=== PATIENT | male | born 1950 | race Hispanic/Latino ===

== ENCOUNTER 2018-08-07 20:25 | Emergency (ER) | payer MEDICARE ==
[2018-08-07] MEDS ORDERED: ACETAMINOPHEN EXTRA STRENGTH 500 MG TABLET ONE (21:46)
[2018-08-07 21:51] LABS: CREATININE 0.8 mg/dL (0.5-1.5); POTASSIUM 3.6 mmol/L (3.5-5.1)
[2018-08-07 21:55] LABS: ALBUMIN 2.9 g/dL (3.5-5.0); BILIRUBIN,DIRECT 0.5 mg/dL (0.0-0.3); TOTAL PROTEIN, SERUM 6.6 g/dL (6.0-8.3)
[2018-08-07 21:59] LABS: BASOPHILS % (AUTO) 0.3 % (0.0-5.0); EOSINOPHILS % (AUTO) 2.6 % (0.0-8.0); HEMATOCRIT 39.1 % (42-54); LYMPHOCYTES % (AUTO) 8.1 % (21.0-51.0); MEAN CORPUSCULAR HEMOGLOBIN 32.9 pg (27.0-33.0); MEAN CORPUSCULAR HGB CONC 34.2 g/dL (32.0-36.0); MEAN CORPUSCULAR VOLUME 96.1 fL (79-99); MONOCYTES % (AUTO) 12.4 % (3.0-13.0); NEUTROPHILS % (AUTO) 76.6 % (40.0-77.0); PLATELET COUNT (AUTO) 118 K/uL (130-400); RED BLOOD CELL COUNT(AUTO) 4.07 MIL/uL (4.50-6.20); RED CELL DISTRIBUTION WIDTH 13.6 % (11.0-15.5)
[2018-08-07 22:04] LABS: APPEARANCE,URINE Clear (CLEAR); BILIRUBIN,URINE Small (NEGATIVE); COLOR,URINE Dark Yellow (YELLOW); GLUCOSE, URINE (UA) Negative (NEGATIVE); KETONES,URINE Trace mg/dL (NEGATIVE); LEUKOCYTE ESTERASE ,URINE Negative (NEGATIVE); NITRATE,URINE Negative (NEGATIVE); OCCULT BLOOD,URINE Negative (NEGATIVE); PROTEIN,URINE Trace (NEGATIVE)
[2018-08-07 22:45] LABS: BACTERIA,URINE Rare /HPF (None Seen); MUCUS,URINE Few LPF (None Seen); RBC,URINE 0-1 /HPF (0-1); SQUAMOUS EPITHELIAL CELL,UR 0-2 /HPF (0-2); WBC,URINE 0-1 /HPF (0-1)
== END 2018-08-07 23:32 | disposition home or self-care (01) ==
LOC: EDH 20:25
DX: A75.9 Typhus fever, unspecified (principal); E86.0 Dehydration
CPT/HCPCS: 36415; 71046; 80048; 80076; 81001; 83605; 84484; 85025; 87040; 87804; 93005; 96361; 96374

== ENCOUNTER 2020-03-31 11:49 | Emergency (ER) | payer MEDICARE ==
[2020-03-31 12:54] LABS: BASOPHILS % (AUTO) 0.6 % (0.0-5.0); EOSINOPHILS % (AUTO) 3.9 % (0.0-8.0); HEMATOCRIT 42.9 % (42-54); LYMPHOCYTES % (AUTO) 21.6 % (21.0-51.0); MEAN CORPUSCULAR HEMOGLOBIN 33.1 pg (27.0-33.0); MEAN CORPUSCULAR VOLUME 94.7 fL (79-99); MONOCYTES % (AUTO) 9.9 % (3.0-13.0); NEUTROPHILS % (AUTO) 63.9 % (40.0-77.0); PLATELET COUNT (AUTO) 130 K/uL (130-400); RED BLOOD CELL COUNT(AUTO) 4.53 MIL/uL (4.50-6.20); RED CELL DISTRIBUTION WIDTH 12.8 % (11.0-15.5)
[2020-03-31 13:10] LABS: RAPID GROUP A STREP NEGATIVE (NEGATIVE)
[2020-03-31 13:24] LABS: CREATININE 0.7 mg/dL (0.5-1.5); POTASSIUM 4.1 mmol/L (3.5-5.1)
[2020-03-31 13:28] LABS: ALBUMIN 3.3 g/dL (3.5-5.0); TOTAL PROTEIN, SERUM 6.7 g/dL (6.0-8.3)
== END 2020-03-31 13:56 | disposition home or self-care (01) ==
LOC: EDH 11:49
DX: I48.92 Unspecified atrial flutter (principal); R06.02 Shortness of breath; Z68.31 Body mass index [BMI] 31.0-31.9, adult; R94.5 Abnormal results of liver function studies; E66.9 Obesity, unspecified; Z87.891 Personal history of nicotine dependence
CPT/HCPCS: 36415; 71045; 80053; 82550; 83880; 84484; 85025; 87804; 87880; 93005

== ENCOUNTER 2020-12-15 10:13 | Emergency (ER) | payer MEDICARE ==
[~2020-12-15] VITALS: Ht 152.4 cm; Wt 93.4 kg
[~2020-12-15 10:13] MED LIST: APIX5TAB PO; CARV12.511 PO; CEFD300C3 PO; PRED20TA3 PO; UMEC1DIS IH
[2020-12-15 11:16] LABS: BASOPHILS % (AUTO) 1.1 % (0.0-5.0); EOSINOPHILS % (AUTO) 10.7 % (0.0-8.0); HEMATOCRIT 38.2 % (42-54); LYMPHOCYTES % (AUTO) 29.5 % (21.0-51.0); MEAN CORPUSCULAR HEMOGLOBIN 32.8 pg (27.0-33.0); MEAN CORPUSCULAR HGB CONC 33.8 g/dL (32.0-36.0); MEAN CORPUSCULAR VOLUME 97.2 fL (79-99); MONOCYTES % (AUTO) 9.4 % (3.0-13.0); NEUTROPHILS % (AUTO) 49.1 % (40.0-77.0); PLATELET COUNT (AUTO) 132 K/uL (130-400); RED BLOOD CELL COUNT(AUTO) 3.93 MIL/uL (4.50-6.20); RED CELL DISTRIBUTION WIDTH 12.8 % (11.0-15.5); WHITE BLOOD COUNT (AUTO) 4.7 K/uL (4.8-10.8)
[2020-12-15] MEDS ORDERED: SOLU-MEDROL 125MG VIAL IVP SCH (11:30)
[2020-12-15] MEDS ORDERED: CEFTRIAXONE 1G VIAL IVP SCH (11:30)
[2020-12-15] MEDS ORDERED: ALBUTEROL 0.083% 2.5 MG/3 ML INH IH SCH (11:30)
[2020-12-15] MEDS ORDERED: 0.9%NACL 100ML 100 ML ONE (11:35)
[2020-12-15 11:38] LABS: ALBUMIN 3.1 g/dL (3.5-5.0); BILIRUBIN,TOTAL 0.7 mg/dL (0.2-1.0); CREATININE 0.7 mg/dL (0.5-1.5); TOTAL PROTEIN, SERUM 5.8 g/dL (6.0-8.3)
[2020-12-15 11:47] VITALS: BP 103/58
[2020-12-15] MEDS ORDERED: METH4TAB3 PO (13:18)
[2020-12-15] MEDS ORDERED: AZIT500T PO (13:18)
[2020-12-15 14:33] VITALS: BP 124/67
== END 2020-12-15 14:39 | disposition home or self-care (01) ==
LOC: EDH 10:13
DX: J44.1 Chronic obstructive pulmonary disease with (acute) exacerbation (principal); I48.91 Unspecified atrial fibrillation; D69.6 Thrombocytopenia, unspecified; E66.9 Obesity, unspecified; F17.200 Nicotine dependence, unspecified, uncomplicated; Z79.01 Long term (current) use of anticoagulants; Z79.899 Other long term (current) drug therapy; Z79.52 Long term (current) use of systemic steroids
CPT/HCPCS: 36415; 71045; 80053; 85025; 93005; 94640; 96374; 96375; 99285; J0696; J2930

== ENCOUNTER 2020-12-30 09:18 | Emergency (ER) | payer MEDICARE ==
[~2020-12-30 09:18] MED LIST changes: +AZIT500T PO; +METH4TAB3 PO
== END 2020-12-30 10:26 | disposition left against medical advice (07) ==
LOC: EDH 09:18
DX: R06.02 Shortness of breath (principal); Z53.21 Procedure and treatment not carried out due to patient leaving prior to being seen by health care provider

== ENCOUNTER 2021-01-10 04:50 | Emergency (ER) | payer MEDICARE ==
[~2021-01-10] VITALS: Ht 160 cm; Wt 93.4 kg
[2021-01-10] MEDS ORDERED: CEFTRIAXONE 1G VIAL IVP ONE (05:30)
[2021-01-10] MEDS ORDERED: ALBUTEROL 0.083% 2.5 MG/3 ML INH IH ONE (05:30)
[2021-01-10] MEDS ORDERED: SOLU-MEDROL 125MG VIAL IVP ONE (05:30)
[2021-01-10 05:45] VITALS: BP 128/74
[2021-01-10 06:02] LABS: BASOPHILS % (AUTO) 0.4 % (0.0-5.0); EOSINOPHILS % (AUTO) 10.5 % (0.0-8.0); HEMATOCRIT 39.2 % (42-54); LYMPHOCYTES % (AUTO) 28.6 % (21.0-51.0); MEAN CORPUSCULAR HGB CONC 33.4 g/dL (32.0-36.0); MEAN CORPUSCULAR VOLUME 98.7 fL (79-99); MONOCYTES % (AUTO) 9.9 % (3.0-13.0); NEUTROPHILS % (AUTO) 50.2 % (40.0-77.0); PLATELET COUNT (AUTO) 103 K/uL (130-400); RED BLOOD CELL COUNT(AUTO) 3.97 MIL/uL (4.50-6.20); RED CELL DISTRIBUTION WIDTH 13.3 % (11.0-15.5)
[2021-01-10 06:09] LABS: CREATININE 0.6 mg/dL (0.5-1.5); POTASSIUM 4.6 mmol/L (3.5-5.1)
[2021-01-10 06:18] LABS: ALBUMIN 2.8 g/dL (3.5-5.0); BILIRUBIN,TOTAL 1.1 mg/dL (0.2-1.0); TOTAL PROTEIN, SERUM 5.7 g/dL (6.0-8.3)
[2021-01-10 06:22] LABS: B-TYPE NATRIURETIC PEPTIDE 182 pg/mL (0-100)
[2021-01-10 06:30] VITALS: BP 117/57
[2021-01-10] MEDS ORDERED: METH4TAB3 PO (07:19)
[2021-01-10] MEDS ORDERED: AZIT500T PO (07:19)
[2021-01-10 08:10] LABS: APPEARANCE,URINE Clear (CLEAR); BILIRUBIN,URINE Negative (NEGATIVE); COLOR,URINE Yellow (YELLOW); GLUCOSE, URINE (UA) Negative (NEGATIVE); KETONES,URINE Negative (NEGATIVE); LEUKOCYTE ESTERASE ,URINE Negative (NEGATIVE); NITRATE,URINE Negative (NEGATIVE); OCCULT BLOOD,URINE Trace (NEGATIVE); PROTEIN,URINE Negative (NEGATIVE)
[2021-01-10 08:17] VITALS: BP 103/46
[2021-01-10 08:31] LABS: BACTERIA,URINE Rare /HPF (None Seen); RBC,URINE 0-1 /HPF (0-1); SQUAMOUS EPITHELIAL CELL,UR Rare /HPF (0-2); WBC,URINE 0-1 /HPF (0-1)
== END 2021-01-10 08:19 | disposition home or self-care (01) ==
LOC: EDH 04:50
DX: J44.1 Chronic obstructive pulmonary disease with (acute) exacerbation (principal); E66.9 Obesity, unspecified; I48.91 Unspecified atrial fibrillation; Z79.899 Other long term (current) drug therapy; Z79.01 Long term (current) use of anticoagulants; Z20.822 Contact with and (suspected) exposure to COVID-19
CPT/HCPCS: 36415; 71045; 80053; 81001; 83880; 84484; 85025; 87426; 93005; 94640; 96374; 96375; 99285; J0696; J2930

== ENCOUNTER 2021-02-07 05:37 | Emergency (ER) | payer MEDICARE ==
[~2021-02-07] VITALS: Ht 160 cm; Wt 97.1 kg
[2021-02-07 06:06] VITALS: BP 94/44
[2021-02-07] MEDS ORDERED: SOLU-MEDROL 125MG VIAL IVP SCH (06:30)
[2021-02-07] MEDS ORDERED: CYCLOBENZAPRINE HCL 10 MG TABLET PO SCH (06:30)
[2021-02-07] MEDS ORDERED: HYDROCODONE/ACETAMINOPHEN 10/325 MG TAB PO SCH (06:30)
[2021-02-07] MEDS ORDERED: CYCLOBENZAPRINE HCL 10 MG TABLET ONE (06:32)
[2021-02-07] MEDS ORDERED: HYDROCODONE/ACETAMINOPHEN 10/325 MG TAB ONE (06:32)
[2021-02-07] MEDS ORDERED: METH4TAB3 PO (06:46)
[2021-02-07] MEDS ORDERED: CYCL5TAB PO (06:46)
== END 2021-02-07 06:59 | disposition home or self-care (01) ==
LOC: EDH 05:37
DX: S39.012A Strain of muscle, fascia and tendon of lower back, initial encounter (principal); I48.91 Unspecified atrial fibrillation; J44.9 Chronic obstructive pulmonary disease, unspecified; K21.9 Gastro-esophageal reflux disease without esophagitis; F17.200 Nicotine dependence, unspecified, uncomplicated; Z79.52 Long term (current) use of systemic steroids; Z79.899 Other long term (current) drug therapy; Z79.01 Long term (current) use of anticoagulants; X58.XXXA Exposure to other specified factors, initial encounter; Y93.89 Activity, other specified; Y92.89 Other specified places as the place of occurrence of the external cause; Y99.8 Other external cause status

== ENCOUNTER 2021-04-13 15:02 | Emergency (ER) | payer MEDICARE ==
[~2021-04-13] VITALS: Ht 160 cm; Wt 98.0 kg
[~2021-04-13 15:02] MED LIST changes: +CYCL5TAB PO
[2021-04-13] MEDS ORDERED: TAMSULOSIN HCL 0.4 MG CAP.ER.24H ONE (15:14)
[2021-04-13 15:22] LABS: APPEARANCE,URINE Clear (CLEAR); BILIRUBIN,URINE Negative (NEGATIVE); COLOR,URINE Yellow (YELLOW); GLUCOSE, URINE (UA) Negative (NEGATIVE); KETONES,URINE Negative (NEGATIVE); LEUKOCYTE ESTERASE ,URINE Trace (NEGATIVE); NITRATE,URINE Negative (NEGATIVE); OCCULT BLOOD,URINE Negative (NEGATIVE); PH,URINE 6.5 (5.0-8.0); PROTEIN,URINE Negative (NEGATIVE)
[2021-04-13 15:30] LABS: BACTERIA,URINE None Seen /HPF (None Seen); RBC,URINE 0-1 /HPF (0-1)
[2021-04-13] MEDS ORDERED: TAMSULOSIN HCL 0.4 MG CAP.ER.24H PO SCH (15:30)
[2021-04-13] MEDS ORDERED: CEFTRIAXONE 1G VIAL IM ONE (15:30)
[2021-04-13 15:31] LABS: MUCUS,URINE Few LPF (None Seen); SQUAMOUS EPITHELIAL CELL,UR Rare /HPF (0-2)
[2021-04-13] MEDS ORDERED: LIDOCAINE HCL-MPF 1% 2ML VIAL ONE (15:34)
[2021-04-13] MEDS ORDERED: CEPH500B PO (15:42)
[2021-04-13] MEDS ORDERED: TAMS-1 PO (15:42)
[2021-04-13 15:56] VITALS: BP 124/71
== END 2021-04-13 16:00 | disposition home or self-care (01) ==
LOC: EDH 15:02
DX: N39.0 Urinary tract infection, site not specified (principal); N40.1 Benign prostatic hyperplasia with lower urinary tract symptoms; R33.8 Other retention of urine; J44.9 Chronic obstructive pulmonary disease, unspecified; I50.9 Heart failure, unspecified; F17.200 Nicotine dependence, unspecified, uncomplicated; Z79.01 Long term (current) use of anticoagulants; Z79.52 Long term (current) use of systemic steroids; Z79.899 Other long term (current) drug therapy
CPT/HCPCS: 81001; 96372; 99283; J0696; J3490

== ENCOUNTER 2021-07-24 13:35 | Emergency (ER) | payer MEDICARE ==
[~2021-07-24] VITALS: Ht 160 cm; Wt 117.9 kg
[~2021-07-24 13:35] MED LIST changes: +CEPH500B PO; +TAMS-1 PO
[2021-07-24 14:59] VITALS: BP 118/58
== END 2021-07-24 15:01 | disposition home or self-care (01) ==
LOC: EDH 13:41
DX: S01.511A Laceration without foreign body of lip, initial encounter (principal); S00.12XA Contusion of left eyelid and periocular area, initial encounter; S40.211A Abrasion of right shoulder, initial encounter; J44.9 Chronic obstructive pulmonary disease, unspecified; F17.210 Nicotine dependence, cigarettes, uncomplicated; Z79.52 Long term (current) use of systemic steroids; Z79.01 Long term (current) use of anticoagulants; Y08.89XA Assault by other specified means, initial encounter; Y93.89 Activity, other specified; Y92.89 Other specified places as the place of occurrence of the external cause; Y99.8 Other external cause status
CPT/HCPCS: 12011; 70450; 70486; 72125

== ENCOUNTER 2021-09-07 16:31 | Emergency (ER) | payer MEDICARE ==
[~2021-09-07] VITALS: Ht 162.6 cm; Wt 117.9 kg
[2021-09-07 16:58] LABS: BASOPHILS % (AUTO) 0.5 % (0.0-5.0); EOSINOPHILS % (AUTO) 3.1 % (0.0-8.0); HEMATOCRIT 40.3 % (42-54); LYMPHOCYTES % (AUTO) 23.3 % (21.0-51.0); MEAN CORPUSCULAR HEMOGLOBIN 32.3 pg (27.0-33.0); MEAN CORPUSCULAR HGB CONC 34.5 g/dL (32.0-36.0); MEAN CORPUSCULAR VOLUME 93.5 fL (79-99); MONOCYTES % (AUTO) 10.9 % (3.0-13.0); PLATELET COUNT (AUTO) 132 K/uL (130-400); RED BLOOD CELL COUNT(AUTO) 4.31 MIL/uL (4.50-6.20); RED CELL DISTRIBUTION WIDTH 13.3 % (11.0-15.5); WHITE BLOOD COUNT (AUTO) 6.5 K/uL (4.8-10.8)
[2021-09-07] MEDS ORDERED: 0.9%NACL 1000ML 1,000 ML IV ONE (17:00)
[2021-09-07] MEDS ORDERED: FLUT1DIS4 IH (17:01)
[2021-09-07] MEDS ORDERED: UMEC62.5 IH (17:01)
[2021-09-07 17:06] LABS: CREATININE 0.7 mg/dL (0.5-1.5); POTASSIUM 3.9 mmol/L (3.5-5.1)
[2021-09-07 17:29] LABS: ALBUMIN 3.2 g/dL (3.5-5.0); BILIRUBIN,TOTAL 2.7 mg/dL (0.2-1.0); TOTAL PROTEIN, SERUM 6.1 g/dL (6.0-8.3)
[2021-09-07 17:53] LABS: INR 1.17 (0.85-1.15); PROTHROMBIN TIME 12.6 SEC (9.6-11.6)
[2021-09-07 17:55] LABS: PARTIAL THROMBOPLASTIN TIME 28.8 SEC (26.3-35.5)
[2021-09-07 18:13] LABS: APPEARANCE,URINE Clear (CLEAR); BILIRUBIN,URINE Negative (NEGATIVE); COLOR,URINE Dark Yellow (YELLOW); GLUCOSE, URINE (UA) Negative (NEGATIVE); KETONES,URINE Negative (NEGATIVE); LEUKOCYTE ESTERASE ,URINE Trace (NEGATIVE); NITRATE,URINE Negative (NEGATIVE); OCCULT BLOOD,URINE Negative (NEGATIVE); PROTEIN,URINE Negative (NEGATIVE)
[2021-09-07 18:30] LABS: BACTERIA,URINE Rare /HPF (None Seen); RBC,URINE 0-1 /HPF (0-1); SQUAMOUS EPITHELIAL CELL,UR Rare /HPF (0-2); WBC,URINE 0-1 /HPF (0-1)
[2021-09-07 18:31] LABS: MUCUS,URINE Few LPF (None Seen)
[2021-09-07] MEDS ORDERED: HUMAN PROTHROMBIN COMPLX(PCC) 500 UNIT KIT IV SCH (19:40)
[2021-09-07 19:49] VITALS: BP 125/98
== END 2021-09-07 20:06 | disposition short-term general hospital (02) ==
LOC: EDH 16:31
DX: S06.5X0A Traumatic subdural hemorrhage without loss of consciousness, initial encounter (principal); S30.0XXA Contusion of lower back and pelvis, initial encounter; R41.82 Altered mental status, unspecified; G81.91 Hemiplegia, unspecified affecting right dominant side; M62.82 Rhabdomyolysis; Z20.822 Contact with and (suspected) exposure to COVID-19; I48.91 Unspecified atrial fibrillation; J44.9 Chronic obstructive pulmonary disease, unspecified; F17.200 Nicotine dependence, unspecified, uncomplicated; Z79.899 Other long term (current) drug therapy; Z79.01 Long term (current) use of anticoagulants; Z60.2 Problems related to living alone; X58.XXXA Exposure to other specified factors, initial encounter; Y93.89 Activity, other specified; Y92.89 Other specified places as the place of occurrence of the external cause; Y99.8 Other external cause status
CPT/HCPCS: 36415; 70450; 80053; 81001; 82550; 84484; 85025; 85610; 85730; 87635; 93005; 96361; 96374; 99291; C9132; C9803; J7030; 96365

== ENCOUNTER 2022-01-13 03:47 | Emergency (ER) | payer MEDICARE ==
[~2022-01-13] VITALS: Ht 160 cm; Wt 92.5 kg
[~2022-01-13 03:47] MED LIST changes: -AZIT500T PO; -CEFD300C3 PO; -CEPH500B PO; -CYCL5TAB PO; +FLUT1DIS4 IH; -METH4TAB3 PO; -PRED20TA3 PO; -UMEC1DIS IH; +UMEC62.5 IH
[2022-01-13] MEDS ORDERED: DEXAMETHASONE SOD PHOSPHATE 4 MG/ML 1ML VIAL IM ONE (04:30)
[2022-01-13] MEDS ORDERED: LORATADINE 10 MG TABLET PO SCH (04:30)
[2022-01-13] MEDS ORDERED: METH4TAB3 PO (04:35)
[2022-01-13 04:41] VITALS: BP 133/79
== END 2022-01-13 04:44 | disposition home or self-care (01) ==
LOC: EDH 03:47
DX: J30.9 Allergic rhinitis, unspecified (principal); Z20.822 Contact with and (suspected) exposure to COVID-19; I10 Essential (primary) hypertension; I48.91 Unspecified atrial fibrillation; J44.9 Chronic obstructive pulmonary disease, unspecified; F17.200 Nicotine dependence, unspecified, uncomplicated; Z79.01 Long term (current) use of anticoagulants; Z79.51 Long term (current) use of inhaled steroids; Z79.52 Long term (current) use of systemic steroids
CPT/HCPCS: 99283; 87635; 87804 ×2; 96372; J1100; C9803

== ENCOUNTER 2023-03-21 01:59 | Emergency (ER) | payer MEDICARE ==
[~2023-03-21] VITALS: Ht 160 cm; Wt 94.8 kg
[~2023-03-21 01:59] MED LIST changes: +METH4TAB3 PO
[2023-03-21] MEDS ORDERED: CARV3.12 PO (02:27)
[2023-03-21] MEDS ORDERED: TAMS-1 PO (02:27)
[2023-03-21 02:28] LABS: ADD UA MICROSCOPIC YES; APPEARANCE,URINE CLEAR (CLEAR); BASOPHILS # (AUTO) 0.02 K/uL (0.00-0.20); BASOPHILS % (AUTO) 0.5 % (0.0-5.0); BILIRUBIN,URINE NEGATIVE (NEGATIVE); COLOR,URINE LIGHT-YELLOW (YELLOW); EOSINOPHILS # (AUTO) 0.18 K/uL (0.00-0.70); EOSINOPHILS % (AUTO) 4.8 % (0.0-8.0); GLUCOSE, URINE (UA) NEGATIVE (NEGATIVE); HEMATOCRIT 40.3 % (42-54); IMMATURE GRANULOCYTE ABSOLUTE 0.01 K/uL (0-1); KETONES,URINE NEGATIVE (NEGATIVE); LEUKOCYTE ESTERASE ,URINE NEGATIVE Leu/uL (NEGATIVE); LYMPHOCYTES # (AUTO) 0.6 K/uL (1.0-4.8); LYMPHOCYTES % (AUTO) 16.9 % (21.0-51.0); MEAN CORPUSCULAR HEMOGLOBIN 33.7 pg (27.0-33.0); MONOCYTES # (AUTO) 0.3 K/uL (0.1-1.0); MONOCYTES % (AUTO) 8.5 % (3.0-13.0); NEUTROPHILS # (AUTO) 2.6 K/uL (1.8-7.7); NITRATE,URINE NEGATIVE (NEGATIVE); OCCULT BLOOD,URINE SMALL (NEGATIVE); PH,URINE 6.5 (5.0-8.0); PLATELET COUNT (AUTO) 97 K/uL (130-400); PROTEIN,URINE NEGATIVE (NEGATIVE); RED BLOOD CELL COUNT(AUTO) 4.07 MIL/uL (4.50-6.20); RED CELL DISTRIBUTION WIDTH 12.8 % (11.0-15.5); UROBILINOGEN,URINE 3 mg/dL (0.2-1.0); WHITE BLOOD COUNT (AUTO) 3.8 K/uL (4.8-10.8)
[2023-03-21] MEDS ORDERED: ATOR40TA71 PO (02:28)
[2023-03-21 02:29] LABS: MUCUS,URINE RARE LPF (None Seen); RBC,URINE 26-50 /HPF (0-1); SQUAMOUS EPITHELIAL CELL,UR RARE /HPF (0-2); WBC,URINE 0-1 /HPF (0-1)
[2023-03-21] MEDS ORDERED: CEPH500C2 PO (02:29)
[2023-03-21] MEDS ORDERED: BUDE10.2 IH (02:30)
[2023-03-21] MEDS ORDERED: FLUT10.67 IH (02:30)
[2023-03-21] MEDS ORDERED: ASPIRIN 81MG CHEW TAB PO ONE (02:30)
[2023-03-21 02:35] LABS: CREATININE 0.6 mg/dL (0.5-1.5); POTASSIUM 3.7 mmol/L (3.5-5.1)
[2023-03-21 02:45] LABS: ALBUMIN 3.3 g/dL (3.5-5.0); BILIRUBIN,TOTAL 1.7 mg/dL (0.2-1.0); MAGNESIUM 1.7 mg/dL (1.80-2.40); TOTAL PROTEIN, SERUM 6.3 g/dL (6.0-8.3)
[2023-03-21] MEDS ORDERED: SOLU-MEDROL 125MG VIAL IVP ONE ×2 (03:00)
[2023-03-21] MEDS ORDERED: FUROSEMIDE 40MG VIAL IV ONE (03:00)
[2023-03-21] MEDS ORDERED: IPRATROPIUM/ALBUTEROL SULFATE 3 ML SOLUTION IH ONE ×3 (03:00)
[2023-03-21 03:08] VITALS: PULSE 61; RESP 19
[2023-03-21 03:13] VITALS: PULSE 61; RESP 19
[2023-03-21 03:18] VITALS: PULSE 65; RESP 19
[2023-03-21 03:20] VITALS: PULSE 66; RESP 20
[2023-03-21 03:48] VITALS: BP 154/60; PULSE 78; RESP 18; O2SAT 98
[2023-03-21] MEDS ORDERED: ALBU90AE2 IH (03:49)
[2023-03-21] MEDS ORDERED: DOXY100T21 PO (03:49)
[2023-03-21] MEDS ORDERED: PRED20TA3 PO (03:49)
== END 2023-03-21 04:32 | disposition home or self-care (01) ==
LOC: EDH 01:59
DX: J44.1 Chronic obstructive pulmonary disease with (acute) exacerbation (principal); J44.9 Chronic obstructive pulmonary disease, unspecified; R60.0 Localized edema; I10 Essential (primary) hypertension; I48.91 Unspecified atrial fibrillation; F17.200 Nicotine dependence, unspecified, uncomplicated; Z79.899 Other long term (current) drug therapy; Z98.890 Other specified postprocedural states
CPT/HCPCS: 99285; 96374; 71045; 96375; 82550; 83735; 83874; 84484 ×2; 80053; 83880; 85025; 81001; 36415; 93005; 94640 ×4; J2930; J1940

== ENCOUNTER 2023-03-21 09:19 | Emergency (ER) | payer MEDICARE ==
[~2023-03-21] VITALS: Ht 160 cm; Wt 94.8 kg
[~2023-03-21 09:19] MED LIST changes: +ALBU90AE2 IH; +ATOR40TA71 PO; +BUDE10.2 IH; +CARV3.12 PO; +CEPH500C2 PO; +DOXY100T21 PO; +FLUT10.67 IH; +PRED20TA3 PO
[2023-03-21 11:11] LABS: APPEARANCE,URINE CLEAR (CLEAR); BILIRUBIN,URINE NEGATIVE (NEGATIVE); COLOR,URINE LIGHT-YELLOW (YELLOW); GLUCOSE, URINE (UA) NEGATIVE (NEGATIVE); KETONES,URINE NEGATIVE (NEGATIVE); LEUKOCYTE ESTERASE ,URINE NEGATIVE Leu/uL (NEGATIVE); NITRATE,URINE NEGATIVE (NEGATIVE); OCCULT BLOOD,URINE LARGE (NEGATIVE); PROTEIN,URINE NEGATIVE (NEGATIVE); UROBILINOGEN,URINE 0.2 mg/dL (0.2-1.0)
[2023-03-21 11:13] LABS: ADD UA MICROSCOPIC YES
[2023-03-21 11:58] LABS: MUCUS,URINE RARE LPF (None Seen); RBC,URINE 51-100 /HPF (0-1); SQUAMOUS EPITHELIAL CELL,UR RARE /HPF (0-2)
[2023-03-21 12:24] VITALS: PULSE 77; RESP 18
[2023-03-21] MEDS ORDERED: IPRATROPIUM/ALBUTEROL SULFATE 3 ML SOLUTION IH ONE (12:30)
[2023-03-21 14:37] VITALS: BP 124/65; PULSE 79; RESP 16; O2SAT 98
[2023-03-21 14:41] LABS: EOSINOPHILS # (AUTO) 0.01 K/uL (0.00-0.70); EOSINOPHILS % (AUTO) 0.2 % (0.0-8.0); HEMATOCRIT 39.7 % (42-54); IMMATURE GRANULOCYTE ABSOLUTE 0.03 K/uL (0-1); LYMPHOCYTES # (AUTO) 0.5 K/uL (1.0-4.8); MEAN CORPUSCULAR HEMOGLOBIN 33.7 pg (27.0-33.0); MEAN CORPUSCULAR VOLUME 96.4 fL (79-99); MONOCYTES # (AUTO) 0.2 K/uL (0.1-1.0); MONOCYTES % (AUTO) 3.9 % (3.0-13.0); NEUTROPHILS # (AUTO) 3.9 K/uL (1.8-7.7); NEUTROPHILS % (AUTO) 85.2 % (40.0-77.0); PLATELET COUNT (AUTO) 103 K/uL (130-400); RED BLOOD CELL COUNT(AUTO) 4.12 MIL/uL (4.50-6.20); RED CELL DISTRIBUTION WIDTH 12.5 % (11.0-15.5); WHITE BLOOD COUNT (AUTO) 4.6 K/uL (4.8-10.8)
[2023-03-21 14:49] LABS: CREATININE 0.9 mg/dL (0.5-1.5); POTASSIUM 3.5 mmol/L (3.5-5.1)
[2023-03-21 14:51] LABS: INR 1.11 (0.85-1.15); PROTHROMBIN TIME 12.8 SEC (9.6-11.6)
[2023-03-21 14:52] LABS: PARTIAL THROMBOPLASTIN TIME 30.6 SEC (26.3-35.5)
[2023-03-21 14:54] LABS: ALBUMIN 3.2 g/dL (3.5-5.0); BILIRUBIN,TOTAL 2.1 mg/dL (0.2-1.0); TOTAL PROTEIN, SERUM 6.3 g/dL (6.0-8.3)
== END 2023-03-21 15:52 | disposition left against medical advice (07) ==
LOC: EDH 09:19
DX: R33.9 Retention of urine, unspecified (principal); I10 Essential (primary) hypertension; J44.9 Chronic obstructive pulmonary disease, unspecified; I48.91 Unspecified atrial fibrillation; Z79.899 Other long term (current) drug therapy; Z60.2 Problems related to living alone
CPT/HCPCS: 36415; 51702; 80053; 81001; 85025; 85610; 85730; 87088; 94640

== ENCOUNTER 2023-03-25 16:06 | Emergency (ER) | payer MEDICARE ==
[~2023-03-25] VITALS: Ht 160 cm; Wt 98.0 kg
[~2023-03-25 16:06] MED LIST changes: -METH4TAB3 PO
[2023-03-25 16:37] VITALS: BP 128/74; PULSE 65; RESP 16; O2SAT 98
[2023-03-25] MEDS ORDERED: MACR100 PO (17:56)
[2023-03-25] MEDS ORDERED: NITROFURANTOIN MONOHYD/M-CRYST 100 MG CAPSULE PO ONE (18:00)
[2023-03-26] MEDS ORDERED: CEPH500B PO (17:02)
[2023-03-26] MEDS ORDERED: PHEN-847 PO (17:02)
== END 2023-03-25 18:06 | disposition home or self-care (01) ==
LOC: EDH 16:06
DX: T83.091A Other mechanical complication of indwelling urethral catheter, initial encounter (principal); I10 Essential (primary) hypertension; I48.91 Unspecified atrial fibrillation; J44.9 Chronic obstructive pulmonary disease, unspecified; F17.200 Nicotine dependence, unspecified, uncomplicated; Z79.01 Long term (current) use of anticoagulants; Z79.51 Long term (current) use of inhaled steroids; Z86.73 Personal history of transient ischemic attack (TIA), and cerebral infarction without residual deficits; Y82.9 Unspecified medical devices associated with adverse incidents; Y92.89 Other specified places as the place of occurrence of the external cause
CPT/HCPCS: 51702

== ENCOUNTER 2023-03-25 23:27 | Emergency (ER) | payer MEDICARE ==
[~2023-03-25] VITALS: Ht 160 cm; Wt 95.7 kg
[~2023-03-25 23:27] MED LIST changes: +MACR100 PO
[2023-03-26 01:32] LABS: BASOPHILS # (AUTO) 0.02 K/uL (0.00-0.20); BASOPHILS % (AUTO) 0.3 % (0.0-5.0); EOSINOPHILS # (AUTO) 0.12 K/uL (0.00-0.70); IMMATURE GRANULOCYTE ABSOLUTE 0.03 K/uL (0-1); LYMPHOCYTES # (AUTO) 1.9 K/uL (1.0-4.8); LYMPHOCYTES % (AUTO) 31.6 % (21.0-51.0); MEAN CORPUSCULAR HGB CONC 34.9 g/dL (32.0-36.0); MEAN CORPUSCULAR VOLUME 97.6 fL (79-99); MONOCYTES # (AUTO) 0.7 K/uL (0.1-1.0); MONOCYTES % (AUTO) 11.9 % (3.0-13.0); NEUTROPHILS # (AUTO) 3.2 K/uL (1.8-7.7); NEUTROPHILS % (AUTO) 53.7 % (40.0-77.0); PLATELET COUNT (AUTO) 100 K/uL (130-400); RED BLOOD CELL COUNT(AUTO) 3.79 MIL/uL (4.50-6.20)
[2023-03-26 01:40] LABS: CREATININE 0.6 mg/dL (0.5-1.5); POTASSIUM 3.4 mmol/L (3.5-5.1)
[2023-03-26 01:47] LABS: ALBUMIN 2.7 g/dL (3.5-5.0); TOTAL PROTEIN, SERUM 5.5 g/dL (6.0-8.3)
[2023-03-26 01:57] LABS: APPEARANCE,URINE CLOUDY (CLEAR); BILIRUBIN,URINE NEGATIVE (NEGATIVE); COLOR,URINE YELLOW (YELLOW); GLUCOSE, URINE (UA) NEGATIVE (NEGATIVE); KETONES,URINE NEGATIVE (NEGATIVE); LEUKOCYTE ESTERASE ,URINE 75 Leu/uL (NEGATIVE); NITRATE,URINE NEGATIVE (NEGATIVE); OCCULT BLOOD,URINE LARGE (NEGATIVE); PROTEIN,URINE 30 mg/dL (NEGATIVE); UROBILINOGEN,URINE 3 mg/dL (0.2-1.0)
[2023-03-26 02:07] LABS: RBC,URINE TNTC /HPF (0-1); YEAST,URINE BUDDING RARE /HPF (None Seen)
[2023-03-26 04:33] VITALS: BP 134/69; PULSE 73; RESP 18; O2SAT 98
[2023-03-26] MEDS ORDERED: CEPH500B PO (17:02)
[2023-03-26] MEDS ORDERED: PHEN-847 PO (17:02)
== END 2023-03-26 04:41 | disposition home or self-care (01) ==
LOC: EDH 23:27
DX: R31.9 Hematuria, unspecified (principal); F17.200 Nicotine dependence, unspecified, uncomplicated; Z79.899 Other long term (current) drug therapy; Z98.890 Other specified postprocedural states
CPT/HCPCS: 36415; 51702; 80053; 81001; 84153; 85025; 87077; 87088; 87186

== ENCOUNTER 2023-03-26 12:26 | Emergency (ER) | payer MEDICARE ==
[~2023-03-26] VITALS: Ht 160 cm; Wt 98.0 kg
[2023-03-26 15:57] LABS: ADD UA MICROSCOPIC YES; APPEARANCE,URINE CLOUDY (CLEAR); BILIRUBIN,URINE NEGATIVE (NEGATIVE); COLOR,URINE LIGHT-ORANGE (YELLOW); GLUCOSE, URINE (UA) 30 mg/dL (NEGATIVE); KETONES,URINE NEGATIVE (NEGATIVE); LEUKOCYTE ESTERASE ,URINE 500 Leu/uL (NEGATIVE); NITRATE,URINE NEGATIVE (NEGATIVE); OCCULT BLOOD,URINE LARGE (NEGATIVE); PROTEIN,URINE 20 mg/dL (NEGATIVE); UROBILINOGEN,URINE 0.2 mg/dL (0.2-1.0)
[2023-03-26 16:00] LABS: BACTERIA,URINE RARE /HPF (None Seen); MUCUS,URINE RARE LPF (None Seen); RBC,URINE >100 /HPF (0-1); UNCLASSIFIED CRYSTAL 7 /HPF (None Seen)
[2023-03-26] MEDS ORDERED: CEFTRIAXONE 2GM VIAL IVPB ONE (17:00)
[2023-03-26] MEDS ORDERED: PHENAZOPYRIDINE HCL 200 MG TABLET PO ONE (17:00)
[2023-03-26] MEDS ORDERED: CEPH500B PO (17:02)
[2023-03-26] MEDS ORDERED: PHEN-847 PO (17:02)
[2023-03-26 17:07] VITALS: BP 124/67; PULSE 78; RESP 16; O2SAT 98
[2023-03-26] MEDS ORDERED: CEPHALEXIN 500 MG CAPSULE PO ONE (17:30)
== END 2023-03-26 17:18 | disposition home or self-care (01) ==
LOC: EDH 12:26
DX: N39.0 Urinary tract infection, site not specified (principal); F17.200 Nicotine dependence, unspecified, uncomplicated; Z79.01 Long term (current) use of anticoagulants; Z79.51 Long term (current) use of inhaled steroids; Z86.73 Personal history of transient ischemic attack (TIA), and cerebral infarction without residual deficits
CPT/HCPCS: 81001

== ENCOUNTER 2023-05-18 15:28 | Emergency (ER) | payer MEDICARE ==
[~2023-05-18] VITALS: Ht 160 cm; Wt 95.7 kg
[~2023-05-18 15:28] MED LIST changes: +CEPH500B PO; +PHEN-847 PO
[2023-05-18 15:42] VITALS: BP 132/75; PULSE 67; RESP 16
== END 2023-05-18 16:10 | disposition home or self-care (01) ==
LOC: EDH 15:28
DX: R20.8 Other disturbances of skin sensation (principal); I10 Essential (primary) hypertension; J44.9 Chronic obstructive pulmonary disease, unspecified; F17.200 Nicotine dependence, unspecified, uncomplicated; Z79.899 Other long term (current) drug therapy; Z98.890 Other specified postprocedural states
CPT/HCPCS: 99281

== ENCOUNTER 2023-11-17 16:53 | Emergency (ER) | payer MEDICARE ==
[~2023-11-17] VITALS: Ht 160 cm; Wt 81.6 kg
[~2023-11-17 16:53] MED LIST changes: -ALBU90AE2 IH; +ALBU90AE3 IH
[2023-11-17 17:17] LABS: BASOPHILS # (AUTO) 0.03 K/uL (0.00-0.20); BASOPHILS % (AUTO) 0.5 % (0.0-5.0); EOSINOPHILS # (AUTO) 0.27 K/uL (0.00-0.70); EOSINOPHILS % (AUTO) 4.3 % (0.0-8.0); HEMATOCRIT 42.6 % (42-54); IMMATURE GRANULOCYTE ABSOLUTE 0.03 K/uL (0-1); LYMPHOCYTES # (AUTO) 1.4 K/uL (1.0-4.8); LYMPHOCYTES % (AUTO) 22.8 % (21.0-51.0); MEAN CORPUSCULAR HGB CONC 35.4 g/dL (32.0-36.0); MONOCYTES # (AUTO) 0.5 K/uL (0.1-1.0); MONOCYTES % (AUTO) 7.2 % (3.0-13.0); NEUTROPHILS % (AUTO) 64.7 % (40.0-77.0); PLATELET COUNT (AUTO) 123 K/uL (130-400); RED BLOOD CELL COUNT(AUTO) 4.58 MIL/uL (4.50-6.20); RED CELL DISTRIBUTION WIDTH 12.5 % (11.0-15.5); WHITE BLOOD COUNT (AUTO) 6.2 K/uL (4.8-10.8)
[2023-11-17 17:23] LABS: CREATININE 0.6 mg/dL (0.5-1.3); POTASSIUM 3.5 mmol/L (3.5-5.1)
[2023-11-17 18:39] LABS: APPEARANCE,URINE CLEAR (CLEAR); BILIRUBIN,URINE NEGATIVE (NEGATIVE); COLOR,URINE LIGHT-YELLOW (YELLOW); GLUCOSE, URINE (UA) NEGATIVE (NEGATIVE); KETONES,URINE NEGATIVE (NEGATIVE); LEUKOCYTE ESTERASE ,URINE NEGATIVE Leu/uL (NEGATIVE); NITRATE,URINE NEGATIVE (NEGATIVE); PROTEIN,URINE NEGATIVE (NEGATIVE); UROBILINOGEN,URINE 0.2 mg/dL (0.2-1.0)
[2023-11-17 18:40] LABS: ADD UA MICROSCOPIC YES; MUCUS,URINE RARE LPF (None Seen); RBC,URINE 0-1 /HPF (0-1); WBC,URINE 0-1 /HPF (0-1)
[2023-11-17 19:00] VITALS: BP 149/83; PULSE 80; RESP 22; O2SAT 98
[2023-11-17] MEDS: ONDANSETRON 4MG INJ IVP ONE (19:34)
[2023-11-17] MEDS: FAMOTIDINE 20MG VIAL IV ONE (19:34)
[2023-11-17] MEDS: KETOROLAC 15MG/ML VIAL (15MG/ML) IV ONE (19:35)
== END 2023-11-17 19:49 | disposition home or self-care (01) ==
LOC: EDH 16:53
DX: N40.0 Benign prostatic hyperplasia without lower urinary tract symptoms (principal); R33.9 Retention of urine, unspecified; I48.91 Unspecified atrial fibrillation; E11.9 Type 2 diabetes mellitus without complications; J44.9 Chronic obstructive pulmonary disease, unspecified; Z79.899 Other long term (current) drug therapy; Z98.890 Other specified postprocedural states
CPT/HCPCS: 99285; 96374; 96375; 71045; 84484; 80048; 85025; 81001; 36415; 93005; J3490; J2405; J1885

== ENCOUNTER 2023-11-20 03:02 | Emergency (ER) | payer MEDICARE ==
[~2023-11-20] VITALS: Ht 160 cm; Wt 94.8 kg
[2023-11-20 03:32] VITALS: BP 132/68; PULSE 96; RESP 16; O2SAT 98
[2023-11-20] MEDS: OXYBUTYNIN 5 MG TAB.SR.24H PO SCH (04:23)
[2023-11-20 04:53] LABS: APPEARANCE,URINE CLEAR (CLEAR); BILIRUBIN,URINE NEGATIVE (NEGATIVE); COLOR,URINE YELLOW (YELLOW); GLUCOSE, URINE (UA) NEGATIVE (NEGATIVE); KETONES,URINE NEGATIVE (NEGATIVE); LEUKOCYTE ESTERASE ,URINE 75 Leu/uL (NEGATIVE); NITRATE,URINE NEGATIVE (NEGATIVE); OCCULT BLOOD,URINE LARGE (NEGATIVE); PH,URINE 5.5 (5.0-8.0); PROTEIN,URINE 20 mg/dL (NEGATIVE)
[2023-11-20 04:59] LABS: ADD UA MICROSCOPIC YES
[2023-11-20 05:08] LABS: BACTERIA,URINE RARE /HPF (None Seen); MUCUS,URINE RARE LPF (None Seen); RBC,URINE TNTC /HPF (0-1)
[2023-11-23] MEDS ORDERED: OXYB-61 PO (03:52)
== END 2023-11-20 05:37 | disposition home or self-care (01) ==
LOC: EDH 03:02
DX: N32.89 Other specified disorders of bladder (principal); E11.9 Type 2 diabetes mellitus without complications; F17.200 Nicotine dependence, unspecified, uncomplicated; I48.91 Unspecified atrial fibrillation; J44.9 Chronic obstructive pulmonary disease, unspecified; Z79.899 Other long term (current) drug therapy; Z98.890 Other specified postprocedural states
CPT/HCPCS: 81001; 87086; 93976

== ENCOUNTER 2023-11-20 06:13 | Emergency (ER) | payer MEDICARE ==
[~2023-11-20] VITALS: Ht 160 cm; Wt 94.8 kg
[2023-11-20 09:11] VITALS: BP 154/88; PULSE 62; RESP 18; O2SAT 98
[2023-11-20] MEDS: BACITRACIN 1 EACH PACKET TP ONE (09:12)
[2023-11-23] MEDS ORDERED: OXYB-61 PO (03:52)
== END 2023-11-20 09:13 | disposition home or self-care (01) ==
LOC: EDH 06:13
DX: R33.9 Retention of urine, unspecified (principal); E11.9 Type 2 diabetes mellitus without complications; F17.200 Nicotine dependence, unspecified, uncomplicated; I48.91 Unspecified atrial fibrillation; J44.9 Chronic obstructive pulmonary disease, unspecified; Z86.73 Personal history of transient ischemic attack (TIA), and cerebral infarction without residual deficits; Z79.899 Other long term (current) drug therapy; Z98.890 Other specified postprocedural states
CPT/HCPCS: 99282

== ENCOUNTER → 2023-11-21 | Emergency (ER) | payer MEDICARE ==
[~2023-11-21] VITALS: Ht 160 cm; Wt 94.8 kg
[~2023-11-21] MED LIST changes: +OXYB-61 PO
[2023-11-21 19:35] VITALS: BP 142/85; PULSE 56; RESP 20; O2SAT 98
== END ==
LOC: EDH 19:13
DX: Z46.82 Encounter for fitting and adjustment of non-vascular catheter (principal); E11.9 Type 2 diabetes mellitus without complications; J44.9 Chronic obstructive pulmonary disease, unspecified; I48.91 Unspecified atrial fibrillation; F17.200 Nicotine dependence, unspecified, uncomplicated; Z79.899 Other long term (current) drug therapy; Z98.890 Other specified postprocedural states
CPT/HCPCS: 99281

== ENCOUNTER 2023-11-29 00:43 | Emergency (ER) | payer MEDICARE ==
[~2023-11-29] VITALS: Ht 160 cm; Wt 94.8 kg
[2023-11-29 01:05] LABS: BASOPHILS # (AUTO) 0.04 K/uL (0.00-0.20); BASOPHILS % (AUTO) 0.8 % (0.0-5.0); EOSINOPHILS # (AUTO) 0.28 K/uL (0.00-0.70); EOSINOPHILS % (AUTO) 5.4 % (0.0-8.0); HEMATOCRIT 37.6 % (42-54); IMMATURE GRANULOCYTE ABSOLUTE 0.02 K/uL (0-1); LYMPHOCYTES # (AUTO) 1.2 K/uL (1.0-4.8); LYMPHOCYTES % (AUTO) 22.8 % (21.0-51.0); MEAN CORPUSCULAR HEMOGLOBIN 33.2 pg (27.0-33.0); MEAN CORPUSCULAR HGB CONC 34.3 g/dL (32.0-36.0); MEAN CORPUSCULAR VOLUME 96.9 fL (79-99); MONOCYTES # (AUTO) 0.5 K/uL (0.1-1.0); MONOCYTES % (AUTO) 10.3 % (3.0-13.0); NEUTROPHILS # (AUTO) 3.1 K/uL (1.8-7.7); NEUTROPHILS % (AUTO) 60.3 % (40.0-77.0); PLATELET COUNT (AUTO) 134 K/uL (130-400); RED BLOOD CELL COUNT(AUTO) 3.88 MIL/uL (4.50-6.20); RED CELL DISTRIBUTION WIDTH 12.5 % (11.0-15.5); WHITE BLOOD COUNT (AUTO) 5.2 K/uL (4.8-10.8)
[2023-11-29 01:18] LABS: CREATININE 0.7 mg/dL (0.5-1.3); POTASSIUM 4.1 mmol/L (3.5-5.1)
[2023-11-29 01:20] LABS: B-TYPE NATRIURETIC PEPTIDE 67 pg/mL (0-100)
[2023-11-29] MEDS: MORPHINE 2 MG SYG IVP ONE (02:25)
[2023-11-29] MEDS: ONDANSETRON 4MG INJ IVP ONE (02:25)
[2023-11-29] MEDS: FAMOTIDINE 20MG VIAL IV ONE (02:25)
[2023-11-29 02:26] VITALS: BP 136/64; PULSE 68; RESP 18; O2SAT 96
[2023-11-29] MEDS: MAG/ALUM/SIMETH 30 ML UDCUP PO ONE (02:26)
[2023-11-29 02:32] LABS: APPEARANCE,URINE CLEAR (CLEAR); BILIRUBIN,URINE NEGATIVE (NEGATIVE); COLOR,URINE COLORLESS (YELLOW); GLUCOSE, URINE (UA) NEGATIVE (NEGATIVE); KETONES,URINE NEGATIVE (NEGATIVE); LEUKOCYTE ESTERASE ,URINE 250 Leu/uL (NEGATIVE); NITRATE,URINE NEGATIVE (NEGATIVE); OCCULT BLOOD,URINE MODERATE (NEGATIVE); PH,URINE 6.5 (5.0-8.0); PROTEIN,URINE NEGATIVE (NEGATIVE); UROBILINOGEN,URINE 0.2 mg/dL (0.2-1.0)
[2023-11-29 02:37] LABS: ADD UA MICROSCOPIC YES
[2023-11-29 02:39] LABS: BACTERIA,URINE RARE /HPF (None Seen); MUCUS,URINE RARE LPF (None Seen)
== END 2023-11-29 04:52 | disposition home or self-care (01) ==
LOC: EDH 00:43
DX: K21.9 Gastro-esophageal reflux disease without esophagitis (principal); I48.91 Unspecified atrial fibrillation; E11.9 Type 2 diabetes mellitus without complications; J44.9 Chronic obstructive pulmonary disease, unspecified; F17.200 Nicotine dependence, unspecified, uncomplicated; Z79.01 Long term (current) use of anticoagulants; Z79.51 Long term (current) use of inhaled steroids; Z86.73 Personal history of transient ischemic attack (TIA), and cerebral infarction without residual deficits
CPT/HCPCS: 99285; 96374; 96375; 71045; 82550; 84484 ×2; 80048; 83880; 85025; 87086; 87880; 81001; 36415; 93005; J3490; J2270; J2405

== ENCOUNTER 2023-11-30 11:32 | Emergency (ER) | payer MEDICARE ==
[~2023-11-30] VITALS: Ht 160 cm; Wt 94.8 kg
[2023-11-30 11:40] VITALS: BP 143/59; PULSE 73; RESP 16
== END 2023-11-30 16:04 | disposition home or self-care (01) ==
LOC: EDH 11:32
DX: T83.021A Displacement of indwelling urethral catheter, initial encounter (principal); E11.9 Type 2 diabetes mellitus without complications; F17.200 Nicotine dependence, unspecified, uncomplicated; I48.91 Unspecified atrial fibrillation; J44.9 Chronic obstructive pulmonary disease, unspecified; Z79.899 Other long term (current) drug therapy; Z98.890 Other specified postprocedural states
CPT/HCPCS: 51702

== ENCOUNTER 2023-12-01 00:49 | Emergency (ER) | payer MEDICARE ==
[~2023-12-01] VITALS: Ht 160 cm; Wt 94.8 kg
[2023-12-01 00:50] VITALS: BP 125/74; PULSE 78; RESP 18
== END 2023-12-01 02:24 | disposition left against medical advice (07) ==
LOC: EDH 00:49
DX: T85.638A Leakage of other specified internal prosthetic devices, implants and grafts, initial encounter (principal); I48.91 Unspecified atrial fibrillation; F17.200 Nicotine dependence, unspecified, uncomplicated; Z79.899 Other long term (current) drug therapy; Z98.890 Other specified postprocedural states
CPT/HCPCS: 99281

== ENCOUNTER 2023-12-06 15:12 | Emergency (ER) | payer MEDICARE ==
[~2023-12-06] VITALS: Ht 91.4 cm; Wt 94.8 kg
[2023-12-06 15:14] VITALS: BP 97/55; PULSE 95; RESP 16
== END 2023-12-06 18:38 | disposition home or self-care (01) ==
LOC: EDH 15:12
DX: R21 Rash and other nonspecific skin eruption (principal); Z96.0 Presence of urogenital implants; J44.9 Chronic obstructive pulmonary disease, unspecified; F17.200 Nicotine dependence, unspecified, uncomplicated; Z79.01 Long term (current) use of anticoagulants; Z79.51 Long term (current) use of inhaled steroids; Z86.73 Personal history of transient ischemic attack (TIA), and cerebral infarction without residual deficits
CPT/HCPCS: 99282

== ENCOUNTER 2023-12-07 00:34 | Emergency (ER) | payer MEDICARE ==
[~2023-12-07] VITALS: Ht 160 cm; Wt 97.1 kg
[2023-12-07 01:08] VITALS: O2SAT 96
[2023-12-07 01:56] LABS: BASOPHILS # (AUTO) 0.03 K/uL (0.00-0.20); BASOPHILS % (AUTO) 0.7 % (0.0-5.0); EOSINOPHILS # (AUTO) 0.33 K/uL (0.00-0.70); EOSINOPHILS % (AUTO) 8.1 % (0.0-8.0); HEMATOCRIT 37.7 % (42-54); IMMATURE GRANULOCYTE ABSOLUTE 0.01 K/uL (0-1); LYMPHOCYTES # (AUTO) 1.1 K/uL (1.0-4.8); LYMPHOCYTES % (AUTO) 27.7 % (21.0-51.0); MEAN CORPUSCULAR HEMOGLOBIN 33.2 pg (27.0-33.0); MEAN CORPUSCULAR HGB CONC 34.2 g/dL (32.0-36.0); MEAN CORPUSCULAR VOLUME 97.2 fL (79-99); MONOCYTES # (AUTO) 0.4 K/uL (0.1-1.0); MONOCYTES % (AUTO) 10.1 % (3.0-13.0); NEUTROPHILS # (AUTO) 2.2 K/uL (1.8-7.7); NEUTROPHILS % (AUTO) 53.2 % (40.0-77.0); PLATELET COUNT (AUTO) 104 K/uL (130-400); RED BLOOD CELL COUNT(AUTO) 3.88 MIL/uL (4.50-6.20); RED CELL DISTRIBUTION WIDTH 12.9 % (11.0-15.5); WHITE BLOOD COUNT (AUTO) 4.1 K/uL (4.8-10.8)
[2023-12-07 02:09] LABS: CREATININE 0.7 mg/dL (0.5-1.3); POTASSIUM 4.5 mmol/L (3.5-5.1)
[2023-12-07 02:24] VITALS: BP 120/61; PULSE 83; RESP 16
== END 2023-12-07 02:26 | disposition home or self-care (01) ==
LOC: EDH 00:34
DX: R60.0 Localized edema (principal); F17.200 Nicotine dependence, unspecified, uncomplicated; Z79.01 Long term (current) use of anticoagulants; Z79.51 Long term (current) use of inhaled steroids; Z86.73 Personal history of transient ischemic attack (TIA), and cerebral infarction without residual deficits
CPT/HCPCS: 36415; 80048; 85025

== ENCOUNTER → 2023-12-09 | Emergency (ER) | payer MEDICARE | LOC: EDH 19:50 | DX: Z46.82 Encounter for fitting and adjustment of non-vascular catheter (principal) ==